=== PATIENT | female | born 1965 | race African-American/Black ===

== ENCOUNTER 2017-06-05 09:23 | Emergency (ER) | payer OTHER ==
[~2017-06-05] VITALS: Ht 162.6 cm; Wt 59.0 kg
[2017-06-05 09:43] VITALS: BP 135/89
== END 2017-06-05 12:20 | disposition left against medical advice (07) ==
LOC: ER 10:21
DX: Z53.21 Procedure and treatment not carried out due to patient leaving prior to being seen by health care provider (principal)